=== PATIENT | male | born 1955 | race Caucasian/White ===

== ENCOUNTER → 2025-03-22 10:15 | Outpatient (REF) | payer MEDICARE, OTHER, SELFPAY ==
[2025-03-22 11:00] LABS: ALT (SGPT) 17 U/L (0-50); AST (SGOT) 22 U/L (17-59); Albumin 4.4 g/dl (3.5-5.0); Alkaline Phosphatase 64 U/L (38-126); Blood Urea Nitrogen 20 mg/dl (9-20); Calcium 9.6 mg/dl (8.4-10.2); Carbon Dioxide 27 mmol/L (22-30); Chloride 111 mmol/L (98-107); Glucose 115 mg/dl (70-99); Magnesium 2.2 mg/dl (1.6-2.3); Potassium 4.3 mmol/L (3.5-5.1); Sodium 144 mmol/L (135-145); Total Bilirubin 0.9 mg/dl (0.2-1.3); eGFR > 60.00
[2025-03-22 11:04] LABS: INR 1.19; PT 15.4 Sec (11.4-14.6)
[2025-03-22 11:11] LABS: % Basophils 0.3 % (0-2); % Eosinophils 1.2 % (0-6); % Immature Granulocytes 0.3 % (0-0.5); % Monocytes 7.3 % (1.7-9.3); % Neutrophils 67.9 % (42.2-75.2); Absolute Eosinophils 0.1 10^3/uL (0-0.7); Absolute Lymphocytes 1.6 10^3/uL (1.2-3.4); Absolute Monocytes 0.5 10^3/uL (0.1-0.6); Absolute Neutrophils 4.6 10^3/uL (1.4-6.5); Hematocrit 42.7 % (39.0-52.0); Hemoglobin 14.4 g/dL (13.0-18.0); Mean Corp Hgb Conc. 33.7 g/dL (33.0-37.0); Mean Corpuscular Hgb 28.8 pg (27.0-31.0); Mean Corpuscular Volume 85.4 fL (80.0-94.0); Mean Platelet Volume 9.8 fL (7.4-10.4); Nucleated Red Blood Cells % 0 % (-); Platelet Count 194 10^3/uL (130-400); Red Cell Dist. Width 13.8 % (11.5-14.5); White Blood Cell Count 6.7 10^3/uL (4.8-10.8)
== END ==
LOC: SDSPAT 10:15
PROVIDERS: ATTENDING PHYSICIAN Internal Medicine Cardiovascular Disease; FAMILY PHYSICIAN Family Medicine; OTHER PHYSICIAN Internal Medicine Cardiovascular Disease
DX: I48.0 Paroxysmal atrial fibrillation (principal)
CPT/HCPCS: 36415; 80053; 83735; 85025; 85610; 86850; 86900; 86901; 93005

== ENCOUNTER → 2025-04-06 08:54 | Outpatient (REF) | payer MEDICARE, OTHER, SELFPAY | LOC: SDSPAT 08:54 | PROVIDERS: ATTENDING PHYSICIAN Internal Medicine Cardiovascular Disease; FAMILY PHYSICIAN Family Medicine; OTHER PHYSICIAN Internal Medicine Cardiovascular Disease | DX: I48.0 Paroxysmal atrial fibrillation (principal) | CPT/HCPCS: 75572; Q9967 ==

== ENCOUNTER 2025-04-13 10:37 | Day surgery (SDC) | payer MEDICARE, OTHER, SELFPAY ==
--- NOTE | 2025-03-22 12:08 | HPS.HSE ---
Family Physician
-
Family Physician: NO INTERVIEW UNKNOWN
Chief Complaint
-
Paroxysmal atrial fibrillation.
History of Present Illness
The patient is a 69 year old male presenting today for paroxysmal atrial fibrillation. The patient reports a longstanding history of disturbing palpitations likely secondary to this diagnosis. He is currently on pharmacological therapy
with Metoprolol Succinate. He reports compliance with Eliquis for oral anticoagulation. He notes that his palpitations can interfere with his activities of daily living and do overall impact his quality of life. He is interested in pursuing
pulmonary vein isolation for more definitive arrhythmia management. He denies any current complaints today such as chest pain, shortness of breath, nausea, vomiting, diarrhea, lightheadedness, dizziness, cough, sore throat, or fever.
Medical History
Past Medical History
Past Medical History: Reports Other
Additional Past Medical History:
1. Paroxysmal atrial fibrillation, pharmacological therapy with Metoprolol Succinate and oral anticoagulation with Eliquis.
2. Hypertension.
3. Hyperlipidemia.
4. Left anterior fascicular block.
5. Left ventricular hypertrophy.
6. Venous varicosities.
7. Obstructive sleep apnea, compliant with CPAP.
8. GERD.
9. Colon polyps.
10. Diverticulosis.
11. Nephrolithiasis.
12. Degenerative disc disease.
13. Osteoarthritis.
14. Hyperparathyroidism, status post partial parathyroidectomy.
15. Bilateral retinal detachment, status post surgical repair.
16. Obesity, BMI 30.0.
Past Surgical History: Reports Other
Additional Past Surgical History:
1. Right hand surgery.
2. Bilateral shoulder surgery.
3. Left knee meniscectomy.
4. Bilateral Little's neuroma excision.
5. Partial parathyroidectomy.
6. Kidney stone extraction.
7. Bilateral retinal detachment repair.
8. Bilateral laser eye surgery.
9. Bilateral cataract extraction.
10. Colonoscopy x2.
Social History
Tobacco: Non-smoker
Alcohol: None
Personal:
Living: Other (He lives in a 2 story home with his spouse. )
Family History
Family History: Other (His son has a history of atrial fibrillation for which he previously underwent an ablation. )
Allergies / Home Medications
Allergy/Medication List:
Home medications:
1. Apixaban 5 mg p.o. twice a day.
2. Cholecalciferol 100 mcg p.o. daily.
3. Cranberry 400 mg p.o. daily.
4. Glucosamine complex 1 capsule p.o. daily.
5. Glucose support formula 1 capsule p.o. daily.
6. Losartan 25 mg p.o. twice a day.
7. Magnesium 250 mg p.o. daily.
8. Metoprolol Succinate 50 mg p.o. twice a day.
9. Multivitamin 1 tablet p.o. daily.
10. Mansura-3/fish oil 2 capsules p.o. daily.
11. Pantethine 450 mg p.o. daily.
12. Prostate Health 1 tablet p.o. daily.
13. Vitamin B complex 1 capsule p.o. daily.
14. Zinc acetate 50 mg p.o. daily.
Allergies: Amoxicillin and Penicillin. Iodine.
Review of Systems
-
A 12 point ROS was completed and negative except as noted: Yes
Physical Exam
Vital Signs
Blood pressure 122/70. Heart rate 68. Respirations 18. Pulse ox 98% on room air.
Height 5 feet, 10 inches. Weight 94.9 kg. BMI 30.0.
Physical Exam
General: Well Developed, Well Nourished and No Apparent Distress
HEENT: NormoCephalic, Moist mucous membranes, Atraumatic and PERRLA
Respiratory: Clear
Cardiac: Regular Rhythm
GI: Soft, Non Tender, Non Distended and Other (Obese. )
Musculoskeletal: No Edema and Normal Gait & Station
Skin: Warm and Dry
Neuro: AO x 3 and Nonfocal/grossly intact
Laboratory Results
-
DIAGNOSTIC STUDIES as of 03/22/2025: White blood cell count 6.7. Hemoglobin 14.4. Platelet count 194,000. PT 15.4. INR 1.19. Sodium 144. Potassium 4.3. BUN 20. Creatinine 1.0. Glucose 115. Calcium 9.6. Magnesium 2.2. AST 22. ALT 17. Albumin 4.4.
Type and screen O positive.
EKG 03/22/2025: Normal sinus rhythm. Left anterior fascicular block.
Chest CT 04/06/2025: Short segment common vestibule for the left superior and inferior pulmonary veins, fairly commonly seen and considered normal variant. No evidence for left atrial thrombus.
Impression/Plan
-
IMPRESSION/PLAN:
1. Paroxysmal atrial fibrillation: The patient is in need of pulmonary vein isolation with Dr. Vitaliy Garcia on 04/13/2025. The benefits and risks of the procedure have been explained to the patient. The patient understands these risks and wishes to
proceed. He will not be required to undergo a pre-procedural transesophageal echocardiogram as he has been compliant with his home oral anticoagulation. He is aware to continue his Eliquis up until the night prior to his procedure. He will take no
medications the morning of his ablation.
[2025-04-13] VITALS (10 sets, daily range): BP systolic 99–143; BP diastolic 56–80; BMI 30.1
[2025-04-13 13:50] LABS: ACT-LR - POC 252 Seconds (116-155)
--- NOTE | 2025-04-13 14:05 | ITS.CL.ABL ---
Damage Appraiser - Ablation
Ablation
Procedure Report:
ELECTROPHYSIOLOGY ABLATION STUDY
DATE:: April 13, 2025�����������������������������REFERRING: Dr. Frederick
INDICATION: Paroxysmal supraventricular tachycardia in the form of atrial fibrillation.��As above refractory to metoprolol
HISTORY: See H and P.��As above
ANTIARRHYTHMIC DRUG: Metoprolol
PRE-PROCEDURE MACK: No intracardiac thrombus on intracardiac ultrasound
PRESENTING RHYTHM: Sinus bradycardia
'TIME-OUT':��called and confirmed.
SEDATION/ANESTHESIA:��provided via the anesthesia department using general anesthesia (LMA).
INTRAVENOUS/ARTERIAL ACCESS:
Right femoral venous - 8Fr
Left femoral venous - 8 Fr, 6 Fr
Ultrasound guidance for bilateral femoral vein access was utilized by me to obtain access with demonstration of normal anatomy
CHADS-VASC Score:
HAS-Bled Score
PROCEDURE:
1.��A decapolar CS catheter was placed within the CS for mapping and pacing.��This was also used as the reference catheter for the 3-D map.
2. The intracardiac ultrasound catheter was positioned in the RA to identify the FO for targeting of transseptal puncture, assist��in identification of the pulmonary vein ostia, monitoring pre and post ablation pulmonary vein flow velocities,
monitoring for 'bubble' formation during RF application as a sign of thermal injury,��and to monitor for pericardial effusion during mapping and ablation procedure.���Left atrial size, LV ejection fraction, and pulmonary vein flows were monitored
pre and post ablation procedure. The other valves were inspected and found to be free of significant regurgitation or stenosis.
3.��Half of the calculated heparin bolus was administered prior to the first transeptal puncture.��Transseptal puncture was performed to diagnose RA and LA pressure so that safetey of LA mapping and ablation could be further assessed, and to access
the left atrium and pulmonary veins for mapping and ablation.��This entailed advancing an 8 Fr SL-1 sheath with dilator into the superior vena cava and withdrawing both (monitoring intracardiac ultrasound, fluoroscopy and tip pressure) with the tip
oriented toward the atrial septum.��The fossa ovalis was engaged (indicated by sudden displacement of the sheath tip as well as tenting of the fossa seen on intracardiac ultrasound).��Left atrial access required a pass with the Brockenbrough needle
extended.��Left atrial catheter position was confirmed by pressure monitoring (RA mean pressure 8 mm Hg and LA mean presure 12 mm Hg), LA saturation (99%),��as well as fluoroscopy.��The sheath was advanced over the dilator and positioned in the left
atrium.��This procedure was repeated for the Agilis sheath.��The remainder of the calculated heparin bolus was administered and heparin was
infused to maintain ACT at 300 -350 seconds throughout the case.
4.��RA pacing was performed via the proximal decapolar poles and LA pacing was performed via the distal decapolr poles.
5. A quadrapolar catheter was first positioned at the His position for His Bundle recording which was tagged via the 3-D Navex sytem, and then passed to the RVA for RV pacing and recording.
6. The grid and Penta splint catheter placed in each of the LIPV, LSPV, RSPV and the RIPV.��
7.��Next, a 3-D map was created using Navex.���A 3-D reconstructed CT image was compared to the 3-D Navex map to assist in anatomic interpretation, mapping and ablation.��The CT image and the NavX image were fused.
8. Total of 49 lesions were given and all of in basket pose to the 4 pulmonary veins and floor opposed to the roof posterior wall and floor of the left atrium. This led to entrance and exit block achieved and all 4 pulmonary veins as well as the
roof floor and posterior wall of the left atrium. The patient was noninducible EPS post procedure.
9. Normal sinus node AV node function noted
TOTAL FLOURO TIME: 10.1 minutes 123 mGy
TOTAL RF DURATION: 0 minutes
REVERSAL OF HEPARIN: 40 mg of protamine, slow IV administration
COMPLICATIONS:
None
Intracardiac US shows no pericardial effusion post ablation.
SUMMARY:��
Complex left atrial mapping and ablation.
Isolation of all 4 pulmonary veins as well as the roof floor and posterior wall of the left atrium
RECOMMENDATIONS:
1. Consider ambulation in 4 hours and same-day discharge
2. Resume anticoagulation
3.� Consider same-day discharge
4.��Continue current meds
Copy to: Dr. Frederick
--- NOTE | 2025-04-13 17:37 | W.PN.UPDATE ---
Update Note
Progress Note Update
69 yo WM s/p PVI (same day). He denies cp, sob, aaron diet, EKG SR, b/l groins F08 removed, sites c/d/i soft. He will resume Eliquis tonight after 8pm and continue metoprolol. Activity restrictions reviewed. He will f/u Dr. Canales in 2 weeks.
He is for d/c home after 630p if groins stable.
== END 2025-04-13 18:45 | disposition home or self-care (01) ==
LOC: CATH 10:37
PROVIDERS: ATTENDING PHYSICIAN Internal Medicine Cardiovascular Disease; FAMILY PHYSICIAN Family Medicine; OTHER PHYSICIAN Internal Medicine Cardiovascular Disease
DX: I48.0 Paroxysmal atrial fibrillation (principal); I47.19 Other supraventricular tachycardia; I44.4 Left anterior fascicular block; I10 Essential (primary) hypertension; E78.5 Hyperlipidemia, unspecified; G47.33 Obstructive sleep apnea (adult) (pediatric); I83.90 Asymptomatic varicose veins of unspecified lower extremity; K21.9 Gastro-esophageal reflux disease without esophagitis; Z86.0100 Personal history of colon polyps, unspecified; K57.90 Diverticulosis of intestine, part unspecified, without perforation or abscess without bleeding; N20.0 Calculus of kidney; M19.90 Unspecified osteoarthritis, unspecified site; E21.3 Hyperparathyroidism, unspecified; E66.9 Obesity, unspecified; Z68.30 Body mass index [BMI] 30.0-30.9, adult; Z98.890 Other specified postprocedural states; Z79.01 Long term (current) use of anticoagulants; Z88.0 Allergy status to penicillin; Z79.899 Other long term (current) drug therapy; Z88.8 Allergy status to other drugs, medicaments and biological substances; Z91.041 Radiographic dye allergy status
CPT/HCPCS: C1732; C1894; C1769; C1759; 85347; 86900; 86901; 93005; 93656; 93657; C1730; C1733; C1766